=== PATIENT | female | born 1960 | race African-American/Black ===

== ENCOUNTER 2016-02-15 00:17 | Observation (INO) | payer OTHER, MEDICAID ==
[~2016-02-15] VITALS: Ht 160 cm; Wt 70.9 kg
[2016-02-15] VITALS (21 sets, daily range): BP systolic 82–156; RESP 16–18; TEMP 97.6–98.8; Ht 160 cm; Wt 70.9 kg
[2016-02-15] MEDS ORDERED: NITROGLYCERIN SL 0.4 MG TAB SL ONE (01:38)
[2016-02-15] MEDS ORDERED: ACETAMINOPHEN 325 MG TAB ONE (01:55)
[2016-02-15] MEDS ORDERED: NITROGLYCERIN 2% OINT 1 INCH PKT TOPICAL ONE (01:55)
[2016-02-15] MEDS ORDERED: KCL CR 20 MEQ TAB PO ONE ×3 (01:58→13:20)
[2016-02-15] MEDS ORDERED: NITROGLYCERIN/D5W 250 ML IV ONE (02:20)
[2016-02-15] MEDS ORDERED: PNEUMO VAC 25 MCG/0.5 ML VL IM.VACC ONE (04:35)
[2016-02-15] MEDS ORDERED: NITROGLYCERIN SL 0.4 MG TAB SL PRN (04:50)
[2016-02-15] MEDS ORDERED: DOCUSATE SOD 100 MG CAP PO PRN (04:50)
[2016-02-15] MEDS ORDERED: TEMAZEPAM 15 MG CAP PO PRN (04:50)
[2016-02-15] MEDS ORDERED: SODIUM CHLORIDE 0.9% FLUSH BAG 500 ML IV PRN (04:50)
[2016-02-15] MEDS ORDERED: SALINE FLUSH 10 ML FLUSH PRN (04:50)
[2016-02-15] MEDS ORDERED: NITROGLYCERIN 50 MG/250 ML IV PRN (04:50)
[2016-02-15] MEDS ORDERED: SODIUM CHLORIDE 0.9% 1,000 ML IV SCH (04:50)
[2016-02-15] MEDS ORDERED: LORAZEPAM 0.5 MG TAB PO PRN (04:50)
[2016-02-15] MEDS ORDERED: ACETAMINOPHEN 325 MG TAB PO PRN (04:50)
[2016-02-15] MEDS ORDERED: TRAMADOL 50 MG TAB PO PRN (04:50)
[2016-02-15] MEDS ORDERED: ASPIRIN EC 81 MG TAB PO SCH (08:00)
[2016-02-15] MEDS: SALINE FLUSH 10 ML FLUSH SCH ×2 (08:46→20:00)
[2016-02-15] MEDS: ASPIRIN EC 81 MG TAB PO SCH (09:30)
[2016-02-15] MEDS: NICOTINE 21 MG/24 HR TRANSDERM SCH (10:12)
[2016-02-15] MEDS: CLOPIDOGREL 75 MG TAB PO SCH (10:12)
[2016-02-15] MEDS: LEVOTHYROXINE 0.025 MG TAB PO SCH (10:12)
[2016-02-15] MEDS: ESCITALOPRAM 10 MG TAB PO SCH (10:12)
[2016-02-15] MEDS: ONDANSETRON 4 MG VIAL IV PRN (18:11)
[2016-02-15] MEDS: hydrOXYzine 10 MG TAB PO SCH ×3 (18:33→21:36)
[2016-02-15] MEDS ORDERED: MISSING DOSE XX ONE (20:45)
[2016-02-15] MEDS: NEBIVOLOL 2.5 MG TAB PO SCH (21:35)
[2016-02-16 03:52] VITALS: BP_SYST 147; RESP 18; TEMP 97.3
[2016-02-16] MEDS: ONDANSETRON 4 MG VIAL IV PRN (05:10)
[2016-02-16] MEDS: LEVOTHYROXINE 0.025 MG TAB PO SCH (06:35)
[2016-02-16 08:00] VITALS: BP_SYST 147; RESP 16; TEMP 97.9
[2016-02-16] MEDS ORDERED: MAG CIT SOLN 300 ML PO ONE (08:45)
[2016-02-16] MEDS ORDERED: LINZESS 145 MCG CAPSULE PO SCH (08:45)
[2016-02-16] MEDS: NICOTINE 21 MG/24 HR TRANSDERM SCH (09:12)
[2016-02-16] MEDS: SALINE FLUSH 10 ML FLUSH SCH (09:12)
[2016-02-16] MEDS: hydrOXYzine 10 MG TAB PO SCH (09:13)
[2016-02-16] MEDS: ESCITALOPRAM 10 MG TAB PO SCH (09:13)
[2016-02-16] MEDS: ASPIRIN EC 81 MG TAB PO SCH (09:13)
[2016-02-16] MEDS: NEBIVOLOL 2.5 MG TAB PO SCH (09:13)
[2016-02-16] MEDS: CLOPIDOGREL 75 MG TAB PO SCH (09:13)
[2016-02-16 12:37] VITALS: BP_SYST 119; RESP 16; TEMP 98
[2016-02-16 14:24] VITALS: BP_SYST 119; RESP 16; TEMP 98
== END 2016-02-16 13:15 | disposition home or self-care (01) ==
LOC: ENRESERVDT → ENRESERVTM → ER 00:17 → ENPENDDIS 02:11 → EMR 02:11 → PCU 03:27
PROVIDERS: ADMIT Internal Medicine; ATTEND Internal Medicine
CPT/HCPCS: 36415 ×2; 71010 ×2; 80048 ×2; 80053 ×2; 80061 ×2; 82550 ×2; 82553 ×2; 83735 ×2; 84484 ×2; 85025 ×2; 85610 ×2; 85730 ×2; 90732 ×2; 93005 ×2; 96365 ×2; 99285; G0378; J2405